=== PATIENT | male | born 1975 | race Hispanic/Latino ===

== ENCOUNTER → 2016-06-15 | Outpatient (REF) | payer OTHER ==
[~2016-06-15] MED LIST: AUGM875T27 PO; BUPR15TAXL PO; CELE20TA OR; CIPR PO; CIPR500T89 PO; DEPA1TAB3 PO; IBUP600T26 PO; LAMI25TA OR; NAPR500T2 PO; PERCOCET PO; PROZ10CA7 PO; SERO1TAB PO; SYNT25TA PO; TRAZ100T OR; TRAZ50TA2 PO; TRAZ50TA4 PO; TYLE325T5 PO; WELL100T PO; XANA2TAB2 PO
== END ==
LOC: M SFHCPLAZ 09:53
PROVIDERS: ATTEND Family Medicine
DX: E03.9 Hypothyroidism, unspecified (principal); R73.9 Hyperglycemia, unspecified

== ENCOUNTER → 2016-06-15 | Outpatient (CLI) | payer OTHER ==
[2016-06-15 08:55] LABS: ALBUMIN 3.6 GM/DL (3.2-5.2); ALBUMIN/GLOBULIN RATIO 1.13 (1.00-1.93); ALKALINE PHOSPHATASE 130 U/L (45-117); ALT/SGPT 30 U/L (12-78); ANION GAP 11 MEQ/L (8-16); AST/SGOT 22 U/L (15-37); BILIRUBIN,TOTAL 0.2 MG/DL (0.2-1.0); BLOOD UREA NITROGEN 11 MG/DL (7-18); CALCIUM LEVEL 7.9 MG/DL (8.5-10.1); CARBON DIOXIDE LEVEL 27 MEQ/L (21-32); CHLORIDE LEVEL 106 MEQ/L (98-107); CHOLESTEROL LEVEL 157 MG/DL (<200); CREATININE FOR GFR 1.12 MG/DL (0.70-1.30); GLOMERULAR FILTRATION RATE > 60.0 (>60); GLUCOSE, FASTING 136 MG/DL (70-105); POTASSIUM SERUM 3.7 MEQ/L (3.5-5.1); SODIUM LEVEL 144 MEQ/L (136-145); TOTAL PROTEIN 6.8 GM/DL (6.4-8.2); TRIGLYCERIDES LEVEL 462 MG/DL (<150)
[2016-06-15 09:55] LABS: FREE T4 0.96 NG/DL (0.76-1.46)
== END ==
LOC: M LAB 08:07
PROVIDERS: ATTEND Family Medicine
DX: E66.3 Overweight (principal)

== ENCOUNTER 2016-07-22 00:53 | Emergency (ER) | payer OTHER ==
[~2016-07-22] VITALS: Ht 165.1 cm; Wt 77.6 kg
[2016-07-22 02:13] VITALS: BP 131/88
== END 2016-07-22 05:44 | disposition left against medical advice (07) ==
LOC: M ED 01:53
DX: M25.521 Pain in right elbow (principal); Z53.21 Procedure and treatment not carried out due to patient leaving prior to being seen by health care provider

== ENCOUNTER 2017-05-04 09:32 | Emergency (ER) | payer OTHER ==
[2017-05-04] MEDS: KETOROLAC 60 MG/2 ML VIAL (J1885) IM (10:15)
[2017-05-04 11:18] LABS: ANION GAP 7 MEQ/L (8-16); BLOOD UREA NITROGEN 12 MG/DL (7-18); CALCIUM LEVEL 8.9 MG/DL (8.5-10.1); CARBON DIOXIDE LEVEL 23 MEQ/L (21-32); CHLORIDE LEVEL 110 MEQ/L (98-107); CREATININE FOR GFR 1.28 MG/DL (0.70-1.30); FREE T4 1.11 NG/DL (0.76-1.46); GLOMERULAR FILTRATION RATE > 60.0 (>60); GLUCOSE, FASTING 110 MG/DL (70-100); MAGNESIUM LEVEL 2.6 MG/DL (1.8-2.4); POTASSIUM SERUM 3.8 MEQ/L (3.5-5.1); SODIUM LEVEL 140 MEQ/L (136-145)
== END 2017-05-04 13:19 | disposition home or self-care (01) ==
LOC: M ED 09:32
DX: S59.801A Other specified injuries of right elbow, initial encounter (principal); G56.91 Unspecified mononeuropathy of right upper limb; F17.200 Nicotine dependence, unspecified, uncomplicated; W19.XXXA Unspecified fall, initial encounter; Y92.099 Unspecified place in other non-institutional residence as the place of occurrence of the external cause; Y93.89 Activity, other specified
CPT/HCPCS: J1885

== ENCOUNTER 2019-05-06 09:13 | Emergency (ER) | payer OTHER ==
[~2019-05-06] VITALS: Ht 162.6 cm; Wt 81.9 kg
[~2019-05-06 09:13] MED LIST changes: -BUPR15TAXL PO; +BUPR1TAB43 PO; +IBUP-1022 PO; -IBUP600T26 PO; +NAPR-885 PO; -NAPR500T2 PO; +OXYC1TAB23 PO; -PERCOCET PO; +TRAZ-252 PO; -TRAZ50TA4 PO; +TYLE500T78 PO
[2019-05-06] MEDS ORDERED: HYDR-3713 (09:22)
--- NOTE | 2019-05-06 11:50 | REP ---
LEFT ELBOW, FOUR VIEWS: There is no evidence of an acute fracture, dislocation or intrinsic bone disease. IMPRESSION: No fracture or dislocation. Electronically Signed by Billy Nava MD 05/08/2019 11:41 A
[2019-05-06 12:36] VITALS: BP 144/75
== END 2019-05-06 12:38 | disposition home or self-care (01) ==
LOC: M ED 09:13
DX: M77.12 Lateral epicondylitis, left elbow (principal); E03.9 Hypothyroidism, unspecified; J30.2 Other seasonal allergic rhinitis; F17.210 Nicotine dependence, cigarettes, uncomplicated

== ENCOUNTER → 2019-11-25 | Emergency (ER) | payer OTHER ==
[~2019-11-25] MED LIST changes: +HYDR-3713; +MORPHINE 2 MG/ML 1ML VIAL (J2270) As Ordered ONE; +MORPHINE 2 MG/ML 1ML VIAL (J2270) ONE
== END | disposition other institution (70) ==
LOC: M ED 22:04
DX: H05.231 Hemorrhage of right orbit (principal); S02.2XXA Fracture of nasal bones, initial encounter for closed fracture; S02.831A Fracture of medial orbital wall, right side, initial encounter for closed fracture; Y04.0XXA Assault by unarmed brawl or fight, initial encounter; Y92.099 Unspecified place in other non-institutional residence as the place of occurrence of the external cause; Y93.9 Activity, unspecified; Y99.9 Unspecified external cause status
CPT/HCPCS: 70450; 70486; 72125; 96374; 99284; J2270

== ENCOUNTER 2020-01-10 08:40 | Emergency (ER) | payer OTHER ==
[~2020-01-10] VITALS: Ht 165.1 cm; Wt 81.3 kg
[~2020-01-10 08:40] MED LIST changes: -MORPHINE 2 MG/ML 1ML VIAL (J2270) As Ordered ONE; -MORPHINE 2 MG/ML 1ML VIAL (J2270) ONE
[2020-01-10 08:41] VITALS: BP 131/78
== END 2020-01-10 09:32 | disposition home or self-care (01) ==
LOC: M ED 08:40
DX: R05 Cough (principal); R09.89 Other specified symptoms and signs involving the circulatory and respiratory systems; R51.9 Headache, unspecified; F17.210 Nicotine dependence, cigarettes, uncomplicated
CPT/HCPCS: 99282; U0003

== ENCOUNTER 2020-08-05 07:40 | Emergency (ER) | payer OTHER ==
[~2020-08-05] VITALS: Ht 165.1 cm; Wt 80.4 kg
[2020-08-05] MEDS ORDERED: NS 1,000 ML IV ONE (08:25)
[2020-08-05] MEDS ORDERED: ONDANSETRON 4MG/2ML VIAL IV ONE (08:25)
[2020-08-05 08:31] LABS: BASO # 0.1 10^3/uL (0.0-0.2); BASO % 0.7 % (0.0-1.0); EOS # 0.1 10^3/uL (0.0-0.5); EOS % 1.5 % (0.0-3.0); HEMATOCRIT 39.8 % (42.0-52.0); LYMPH # 2.8 10^3/uL (1.5-5.0); LYMPH % 31.7 % (24.0-44.0); MEAN CORPUSCULAR HGB CONC 32.7 g/dl (32.0-36.5); MEAN CORPUSCULAR VOLUME 88.8 fl (80.0-96.0); MONO # 0.6 10^3/uL (0.0-0.8); MONO % 7.2 % (2.0-8.0); NEUTROPHILS # 5.3 10^3/uL (1.5-8.5); NEUTROPHILS % 58.7 % (36.0-66.0); PLATELET COUNT, AUTOMATED 230 10^3/uL (150-450); RED BLOOD COUNT 4.48 10^6/uL (4.30-6.10); WHITE BLOOD COUNT 8.9 10^3/uL (4.0-10.0)
[2020-08-05] MEDS ORDERED: ISOVUE-370 76% 100ML VIAL As Ordered ONE (08:48)
[2020-08-05 09:03] LABS: ALT/SGPT 34 U/L (12-78); BILIRUBIN,DIRECT < 0.1 MG/DL (0.0-0.2); BILIRUBIN,TOTAL 0.2 MG/DL (0.2-1.0); BLOOD UREA NITROGEN 17 MG/DL (7-18); CALCIUM LEVEL 9.3 MG/DL (8.5-10.1); CARBON DIOXIDE LEVEL 25 MEQ/L (21-32); CHLORIDE LEVEL 109 MEQ/L (98-107); CK-MB VALUE MASS < 1.0 NG/ML (<3.6); CPK CREATINE PHOSPHOKINASE 439 U/L (39-308); CREATININE FOR GFR 1.13 MG/DL (0.70-1.30); ETHYL ALCOHOL (ETHANOL) < 0.003 % (0.000-0.010); GLOMERULAR FILTRATION RATE > 60.0 (>60); GLUCOSE, FASTING 133 MG/DL (70-100); LIPASE 115 U/L (73-393); MB/CK RELATIVE INDEX 0.23 (< OR =4); POTASSIUM SERUM 3.6 MEQ/L (3.5-5.1); SODIUM LEVEL 141 MEQ/L (136-145); TOTAL PROTEIN 7.9 GM/DL (6.4-8.2); TROPONIN I < 0.02 NG/ML (< 0.10)
--- NOTE | 2020-08-05 09:07 | REP ---
INDICATION: abdominal pain. COMPARISON: Comparison chest x-ray March 07, 2015. TECHNIQUE: Portable upright AP chest radiograph. FINDINGS: The lungs are well inflated and free of infiltrate. Pleural angles are sharp. Heart size is normal. Pulmonary vasculature is not increased. EKG monitoring electrodes are seen. There are surgical clips in right upper quadrant post cholecystectomy. IMPRESSION: No active disease. <Electronically signed by Niko Castellon > 08/05/20 0903
--- NOTE | 2020-08-05 09:29 | REP ---
INDICATION: abdominal pain. COMPARISON: Comparison CT abdomen is from September 03, 2012.. TECHNIQUE: Helical scanning was acquired and 4 mm axial images are re-formatted. Coronal and sagittal MPR images were generated and reviewed. The contrast enhancement dose is 100 mL of intravenous Isovue 370. FINDINGS: Preliminary digital criminal research specialist radiograph demonstrates an unremarkable bowel gas pattern. The lung bases are clear on axial CT images. The gallbladder surgically absent. No focal liver lesion is seen. The liver is not enlarged. There are 2 stable accessory splenules in the left upper quadrant unchanged. Normal adrenal glands are seen bilaterally. No abnormality is observed in the pancreas. The kidneys enhance symmetrically and are morphologically intact. No retroperitoneal mass or adenopathy is observed. Small and large intestinal bowel loops are unremarkable in the abdomen and pelvis. A normal appendix is seen in the right lower quadrant. Urinary bladder, seminal vesicles, and prostate are unremarkable. No pelvic mass or adenopathy is seen. No abdominal wall defect is observed. Bone window settings show no bony destructive lesion. IMPRESSION: Post cholecystectomy. No acute abdominal or pelvic abnormality. <Electronically signed by Niko Castellon > 08/05/20 0988
[2020-08-05 12:15] VITALS: BP 129/77
[2020-08-05] MEDS ORDERED: ONDA4TAB6 PO (12:16)
[2020-08-05] MEDS ORDERED: SUCR1TA PO (12:16)
--- NOTE | 2020-08-05 22:58 | ECGEPIP ---
[facility] - ED Test Date: 2020-08-05 Pat Name: LIZ GARCIA Department: Room: - Gender: Male Concept Artist: GER : 1975 Requested By: CROW Farmer Order Number: [id number] Reading MD: Hernan Tamayo Measurements Intervals [place] Rate: 88 P: 20 MD: 116 QRS: 56 QRSD: 90 T: 51 QT: 368 QTc: 445 Interpretive Statements Normal sinus rhythm BASELINE ARTIFACT AFFECTS INTERPRETATION Electronically Signed on 08-05-2020 22:58:40 EDT by Hernan Tamayo
== END 2020-08-05 12:26 | disposition home or self-care (01) ==
LOC: M ED 07:40
DX: K30 Functional dyspepsia (principal); F17.200 Nicotine dependence, unspecified, uncomplicated
CPT/HCPCS: 36415; 71045; 74177; 80048; 80076; 82077; 82550; 82553; 83605; 83690; 85025; 93005; 93041; 96361; 96374; 99285; J2405; Q9967

== ENCOUNTER → 2020-11-20 | Outpatient (CLI) | payer OTHER ==
[~2020-11-20] MED LIST changes: +ONDA4TAB6 PO; +SUCR1TA PO
--- NOTE | 2020-11-20 11:01 | REP ---
INDICATION: R HAND INJURY, R/O FRACTURE. COMPARISON: None. TECHNIQUE: Four views FINDINGS: Chip fracture base proximal phalanx index finger medial aspect. Soft tissue swelling index finger paired soft tissue swelling thenar eminence. No other fractures. IMPRESSION: Chip fracture base proximal phalanx 2nd finger. <Electronically signed by Brian Quintero > 11/20/20 1058
== END ==
LOC: M RAD 10:38
PROVIDERS: ATTEND Physician Assistant Medical
DX: S62.610A Displaced fracture of proximal phalanx of right index finger, initial encounter for closed fracture (principal); X58.XXXA Exposure to other specified factors, initial encounter; Y92.89 Other specified places as the place of occurrence of the external cause; Y93.89 Activity, other specified; Y99.8 Other external cause status

== ENCOUNTER 2020-12-29 15:09 | Emergency (ER) | payer OTHER ==
[~2020-12-29] VITALS: Ht 165.1 cm; Wt 78.2 kg
[2020-12-29 15:09] VITALS: BP 153/87
== END 2020-12-29 17:15 | disposition left against medical advice (07) ==
LOC: M ED 15:09
DX: Z53.21 Procedure and treatment not carried out due to patient leaving prior to being seen by health care provider (principal)

== ENCOUNTER 2021-01-31 02:17 | Emergency (ER) | payer OTHER ==
[~2021-01-31] VITALS: Ht 165.1 cm; Wt 80.0 kg
--- OUTSIDE RECORDS SUMMARY | 2021-01-31 02:24 | CCD ---
Author Organization Unknown Address [address] [place] [id number] Phone [phone] Care Team Providers Care Union Laborer Name Role Phone Rico Packer Unavailable Unavailable Allergies Code Code System Name Reaction Severity Status Onset NKDA Medications Name Status Start Date Stop Date amoxicillin 875 mg-potassium clavulanate 125 mg tablet TAKE ONE TABLET BY MOUTH TWICE DAILY FOR SEVEN DAYS Completed 12/01/2020 hydrocodone 5 mg-acetaminophen 325 mg ta blet TAKE ONE TABLET BY MOUTH EVERY SIX HOURS NEEDED FOR PAIN MAX DAILY DOSE FOUR TABLETS Completed 12/01/2020 ibuprofen 400 mg tablet TAKE ONE TABLET BY MOUTH EVERY SIX HOURS NEEDED FOR PAIN FOR UP TO 10 DAYS Completed 12/01/2020 lamotrigine 25 mg tablet TAKE ONE TABLET BY MOUTH ONCE DAILY Active Not available naproxen 500 mg tablet TAKE ONE TABLET BY MOUTH EVERY 12 HOURS FOR 10 DAYS Completed 12/01/2020 ondansetron 4 mg disintegrating tablet TAKE ONE TABLET BY MOUTH EVERY 6-8 HOURS NEEDED FOR NAUSEA AND VOMITING Completed 12/01/2020 sucralfate 1 gram tablet TAKE ONE TABLET BY MOUTH FOUR TIMES DAILY Completed 12/01/2020 Tylenol 325 mg capsule Take by oral route. 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 11/08/2018 History Arthropathy Active 11/08/[address] Concept Unknown 11/08/2018 History Disorder of Musculoskeletal System Unknown 03/15/2019 History Lateral Epicondylitis Active 07/07/2020 Procedures Date Name Performed by 12/01/2020 XR, Hand [facility] [address], [place] [id number] (Work Place) Notes: gallbladder removed Results Lab Results Date Name Specimen Result Interpretation Description Value Range Status Address 08/05/2020 Lactic Acid, Serum or Plasma Normal Lactic Acid Sepsis Protocol 1.6 mmol/L 0.4-2.0 mmol/L [facility]: [address] [place] [address] 08/05/2020 CBC W/ Auto Diff Normal White Blood Count 8.9 10 4.0-10.0 10 [facility]: [address] [place] [address] Normal Red Blood Count 4.48 10 4.30-6.10 10 [facility]: [address] [place] [address] Low Hemoglobin 13.0 g/dL 13.5-17.5 g/dL [facility]: [address] [place] [address] Low Hematocrit 39.8 % 42.0-52.0 % [facility]: [address] [place] [address] Normal Mean Corpuscular Volume 88.8 fL 80.0 -96.0 fL [facility]: [address] [place] [address] Normal Mean Corpuscular Hemoglobin 29.0 pg 27.0-33.0 pg [facility]: [address] [place] [address] Normal Mean Corpuscular HGB Conc 32.7 g/dL 32.0-36.5 g/dL [facility]: [address] [place] [address] Normal Red Cell Distribution Width 13.3 % 1 1.5-14.5 % [facility]: [address] [place] [address] Normal Platelet Count, Automated 230 10 150 -450 10 [facility]: [address] [place] [address] Normal Neutrophils % 58.7 % 36.0-66.0 % [facility]: [address] [place] [address] Normal Lymph % 31.7 % 24.0-44.0 % [facility]: [address] [place] [address] Normal [place] % 7.2 % 2.0-8.0 % [facility]: [address] [place] [address] Normal Eos % 1.5 % 0.0-3.0 % [facility]: [address] [place] [address] Normal Baso % 0.7 % 0.0-1.0 % [facility]: [address] [facility] Normal Immature Granulocyte % 0.2 % 0-3.0 % [facility]: [address] [facility] Normal Nucleated Red Blood Cell % 0.0 % 0- 0 % [facility]: [address] [facility] Normal Neutrophils # 5.3 10 1.5-8.5 10 [facility] [address] [facility] Normal Lymph # 2.8 10 1.5-5.0 10 [facility]: [address] [facility] Normal Morrill # 0.6 10 0.0-0.8 10 Health system: [address] [facility] Normal Eos # 0.1 10 0.0-0.5 10 [facility]: [address] [facility] Normal Baso # 0.1 10 0.0-0.2 10 Health system: [address] [facility] 08/05/2020 Cardiovascular Assessment Panel, Serum High CPK Creatine Phosphokinase 439 U/L 39-308 U/L [facility]: [address] [place] [address] Normal CK-mb Value Mass < 1.0 NG/mL <3.6 NG /mL [facility]: [address] [place] [address] Normal mb/CK Relative Index 0.23 < or =4 [facility]: 0 [facility] Normal Troponin I < 0.02 NG/mL < 0.10 NG/mL [facility]: 0 [facility] 08/05/2020 Hepatic Function Panel, Serum Normal AST/SG OT 25 U/L 7-37 U/L [facility]: 0 [facility] Normal ALT/SGPT 34 U/L 12-78 U/L [facility]: 0 [facility] High Alkaline Phosphatase 130 U/L 45-117 U/L [facility]: 0 [facility] Normal Bilirubin,total 0.2 mg/dL 0.2-1.0 mg /dL [facility]: [address] [facility] Normal Bilirubin,direct < 0.1 mg/dL 0.0-0.2 mg/dL [facility]: [address] [facility] Normal Total Protein 7.9 gm/dL 6.4-8.2 gm/d L [facility]: [address] [facility] Normal Albumin 4.0 gm/dL 3.2-5.2 gm/dL Guerline l [facility]: [address] [facility] Normal Albumin/globulin Ratio 1.0 [facility]: 0 [facility] 08/05/2020 BMP, Serum or Plasma High Glucose, Fastin g 133 mg/dL 70-100 mg/dL [facility]: [address] [facility] Normal Blood Urea Nitrogen 17 mg/dL 7-18 mg /dL [facility]: 0 [facility] Normal Creatinine for GFR 1.13 mg/dL 0.70-1 .30 mg/dL [facility]: 0 [facility] Normal Glomerular Filtration Rate > 60.0 >6 0 [facility]: 0 [facility] Normal Sodium Level 141 mEq/L 136-145 mEq/L [facility]: 0 [facility] Normal Potassium Serum 3.6 mEq/L 3.5-5.1 mE q/L [facility]: [address] [facility] High Chloride Level 109 mEq/L 98-107 mEq/ L [facility]: 0 [facility] Normal Carbon Dioxide Level 25 mEq/L 21-32 mEq/L [facility]: 0 [facility] Low Anion Gap 7 mEq/L 8-16 mEq/L [facility]: 0 [facility] Normal Calcium Level 9.3 mg/dL 8.5-10.1 mg/ dL [facility]: 0 [facility] 08/05/2020 Lipase, Serum or Plasma Normal Lipase 115 U/L 73-393 U/L Final [facility]: [address] [facility] 08/05/2020 Ethanol, Blood Normal Ethyl Alcohol (Ethano l) < 0.003 % 0.000- 0.010 % Final [facility]: [address] [facility] Past Encounters 01/05/2021 Depressive Disorder Kayla Duque, [facility]: [address] [facility], [facility] [address], [place] [address], Ph. 12/01/2020 Fracture of Proximal Phalanx of Finger; Impulse Control Disorder Rico Packer, [facility]: [address] [facility], [facility] [address], [place] [address], Ph. Social History None recorded. Vaccine List None recorded. Plan of Care Reminders Provider Appointments None recorded. Lab None recorded. Referral None recorded. Procedures None recorded. Surgeries None recorded. Imaging None recorded. Vitals 12/01/2020 01:40PM HOSPITAL DISCHARGE Height Weight BMI Blood Pressure 65 in 175 lbs 8 oz 29.2 kg/m2 129/89 mm[Hg] 03/15/2019 Height Weight BMI Blood Pressure 65 in 161 lbs 12.8 oz 27.02 kg/m2 128/88 mm[H g] 11/08/2018 Height Weight BMI Blood Pressure 65 in 174 lbs 29.06 kg/m2 142/86 mm[Hg]
--- OUTSIDE RECORDS SUMMARY | 2021-01-31 02:24 | CCD ---
Author Organization Unknown Address [address] [place] [address] Phone [phone] Care Team Providers Care Auto Engine Mechanic Name Role Phone Rico Packer Unavailable Unavailable [...] Unknown 03/15/2019 History Lateral Epicondylitis Active 07/07/2020 Dysthymia Active 01/27/2021 Procedures Date Name Performed by 12/01/2020 XR, Hand [facility] [address] [place], [place] [id number] (Work Place) Notes: gallbladder removed Results Lab Results Date Name Specimen Result Interpretation Description Value Range Status Address 08/05/2020 Lactic Acid, Serum or Plasma Normal Lactic Acid Sepsis Protocol 1.6 mmol/L 0.4-2.0 mmol/L [facility]: [address] [place] [address] 08/05/2020 CBC W/ Auto Diff Normal White Blood Count 8.9 10 4.0-10.0 10 [facility]: [address] [place] [address] Normal Red Blood Count 4.48 10 4.30-6.10 10 [facility]: [address] [place] [address] Low Hemoglobin 13.0 g/dL 13.5-17.5 g/dL [facility]: [address] [place] [address] Low Hematocrit 39.8 % 42.0-52.0 % [facility]: [address] [place] [address] Normal Mean Corpuscular Volume 88.8 fL 80.0 -96.0 fL [facility]: [address] [place] [address] Normal Mean Corpuscular Hemoglobin 29.0 pg 27.0-33.0 pg [facility]: [address] [place] [address] Normal Mean Corpuscular HGB Conc 32.7 g/dL 32.0-36.5 g/dL [facility]: [address] [place] [address] Normal Red Cell Distribution Width 13.3 % 1 1.5-14.5 % [facility]: [address] [place] [address] Normal Platelet Count, Automated 230 10 150 -450 10 [facility]: [address] [place] [address] Normal Neutrophils % 58.7 % 36.0-66.0 % [facility]: [address] [place] [address] Normal Lymph % 31.7 % 24.0-44.0 % [facility]: [address] [place] [address] Normal [place] % 7.2 % 2.0-8.0 % [facility]: [address] [place] [address] Normal Eos % 1.5 % 0.0-3.0 % [facility]: [address] [place] [address] Normal Baso % 0.7 % 0.0-1.0 % [facility]: [address] [facility] Normal Immature Granulocyte % 0.2 % 0-3.0 % [facility]: [address] [facility] Normal Nucleated Red Blood Cell % 0.0 % 0- 0 % [facility]: [address] [facility] Normal Neutrophils # 5.3 10 1.5-8.5 10 [facility]: [address] [facility] Normal Lymph # 2.8 10 1.5-5.0 10 [facility]: [address] [facility] Normal [place] # 0.6 10 0.0-0.8 10 [facility]: [address] [facility] Normal Eos # 0.1 10 0.0-0.5 10 [facility]: [address] [facility] Normal Baso # 0.1 10 0.0-0.2 10 [facility]: [address] [facility] 08/05/2020 Cardiovascular Assessment Panel, Serum High CPK Creatine Phosphokinase 439 U/L 39-308 U/L [facility]: 0 [facility] Normal CK-mb Value Mass < 1.0 NG/mL <3.6 NG /mL [facility]: [address] [place] [address] Normal mb/CK Relative Index 0.23 < or =4 [facility]: [address] [place] [address] Normal Troponin I < 0.02 NG/mL < 0.10 NG/mL [facility]: 0 [facility] 08/05/2020 Hepatic Function Panel, Serum Normal AST/SG OT 25 U/L 7-37 U/L [facility]: 0 [facility] Normal ALT/SGPT 34 U/L 12-78 U/L [facility]: 0 [facility] High Alkaline Phosphatase 130 U/L 45-117 U/L [facility]: 0 [facility] Normal Bilirubin,total 0.2 mg/dL 0.2-1.0 mg /dL [facility]: [address] [facility] Normal Bilirubin,direct < 0.1 mg/dL 0.0-0.2 mg/dL [facility]: [address] [facility] Normal Total Protein 7.9 gm/dL 6.4-8.2 gm/d L [facility]: [address] [facility] Normal Albumin 4.0 gm/dL 3.2-5.2 gm/dL Guerline l [facility]: [address] [facility] Normal Albumin/globulin Ratio 1.0 [facility]: 0 [facility] 08/05/2020 BMP, Serum or Plasma High Glucose, Fastin g 133 mg/dL 70-100 mg/dL [facility]: [address] [facility] Normal Blood Urea Nitrogen 17 mg/dL 7-18 mg /dL [facility]: 0 [facility] Normal Creatinine for GFR 1.13 mg/dL 0.70-1 .30 mg/dL [facility]: 0 [facility] Normal Glomerular Filtration Rate > 60.0 >6 0 [facility]: [address] [facility] Normal Sodium Level 141 mEq/L 136-145 mEq/L [facility]: 0 [facility] Normal Potassium Serum 3.6 mEq/L 3.5-5.1 mE q/L [facility]: [address] [facility] High Chloride Level 109 mEq/L 98-107 mEq/ L [facility]: [address] [facility] Normal Carbon Dioxide Level 25 mEq/L 21-32 mEq/L [facility]: 0 [facility] Low Anion Gap 7 mEq/L 8-16 mEq/L [facility]: [address] [facility] Normal Calcium Level 9.3 mg/dL 8.5-10.1 mg/ dL [facility]: 0 [facility] 08/05/2020 Lipase, Serum or Plasma Normal Lipase 115 U/L 73-393 U/L Final [facility]: [address] [facility] 08/05/2020 Ethanol, Blood Normal Ethyl Alcohol (Ethano l) < 0.003 % 0.000- 0.010 % [facility]: [address] [facility] Past Encounters 01/27/2021 Dysthymia Kayla Duque, [facility]: [address] [facility] [address], [place] [address], Ph. 01/05/2021 Depressive Disorder Kayla Duque [facility]: [address] [facility], [facility] [address], [place] [address], Ph. 12/01/2020 Fracture of Proximal Phalanx of Finger; Impulse Control Disorder Rico Packer, [facility]: [address] [facility], [facility] [address], [place] [address], Ph. Social History None recorded. Vaccine List [...]
--- OUTSIDE RECORDS SUMMARY | 2021-01-31 02:24 | CCD ---
Author Organization Unknown Address [address] [place] [id number] Phone [phone] Care Team Providers Care General Assembler Name Role Phone Rico Packer Unavailable Unavailable [...] Date Name Performed by 12/01/2020 XR, [facility] [address] [place], [place] [id number] (Work Place) Notes: gallbladder removed Results Lab Results Date Name Specimen Result Interpretation Description Value Range Status Address 08/05/2020 Lactic Acid, Serum or Plasma Normal Lactic Acid Sepsis Protocol 1.6 mmol/L 0.4-2.0 mmol/L [facility]: [address] [place] [address] 08/05/2020 CBC W/ Auto Diff Normal White Blood Count 8.9 10 4.0-10.0 10 [facility]: [address] [place] [address] Normal Red Blood Count 4.48 10 4.30-6.10 10 [facility]: [address] [place] [address] Low Hemoglobin 13.0 g/dL 13.5-17.5 g/dL [facility]: [address] [place] [address] Low Hematocrit 39.8 % 42.0-52.0 % [facility]: [address] [place] [address] Normal Mean Corpuscular Volume 88.8 fL 80.0 -96.0 fL [facility]: [address] [place] [address] Normal Mean Corpuscular Hemoglobin 29.0 pg 27.0-33.0 pg [facility]: [address] [place] [address] Normal Mean Corpuscular HGB Conc 32.7 g/dL 32.0-36.5 g/dL [facility]: [address] [place] [address] Normal Red Cell Distribution Width 13.3 % 1 1.5-14.5 % [facility]: [address] [place] [address] Normal Platelet Count, Automated 230 10 150 -450 10 [facility]: [address] [place] [address] Normal Neutrophils % 58.7 % 36.0-66.0 % [facility]: [address] [place] [address] Normal Lymph % 31.7 % 24.0-44.0 % [facility]: [address] [place] [address] Normal [place] % 7.2 % 2.0-8.0 % [facility]: [address] [place] [address] Normal Eos % 1.5 % 0.0-3.0 % [facility]: [address] [place] [address] Normal Baso % 0.7 % 0.0-1.0 % [facility]: [address] [facility] Normal Immature Granulocyte % 0.2 % 0-3.0 % [facility]: [address] [facility] Normal Nucleated Red Blood Cell % 0.0 % 0- 0 % [facility]: [address] [facility] Normal Neutrophils # 5.3 10 1.5-8.5 10 [facility] [address] [facility] Normal Lymph # 2.8 10 1.5-5.0 10 [facility]: [address] [facility] Normal [place] # 0.6 10 0.0-0.8 10 [facility]: [address] [facility] Normal Eos # 0.1 10 0.0-0.5 10 [facility]: [address] [facility] Normal Baso # 0.1 10 0.0-0.2 10 [facility]: [address] [facility] 08/05/2020 Cardiovascular Assessment Panel, Serum High CPK Creatine Phosphokinase 439 U/L 39-308 U/L [facility]: [address] [place] [address] Normal CK-mb Value Mass < 1.0 NG/mL <3.6 NG /mL [facility]: [address] [place] [address] Normal mb/CK Relative Index 0.23 < or =4 [facility]: 0 [facility] Normal Troponin I < 0.02 NG/mL < 0.10 NG/mL [facility]: 0 [facility] 08/05/2020 Hepatic Function Panel, Serum Normal AST/SG OT 25 U/L 7-37 U/L [facility]: 0 [facility] Normal ALT/SGPT 34 U/L 12-78 U/L [facility]: 0 [facility] High Alkaline Phosphatase 130 U/L 45-117 U/L [facility]: 0 [facility] Normal Bilirubin,total 0.2 mg/dL 0.2-1.0 mg /dL [facility]: [address] [facility] Normal Bilirubin,direct < 0.1 mg/dL 0.0-0.2 mg/dL [facility]: [address] [facility] Normal Total Protein 7.9 gm/dL 6.4-8.2 gm/d L [facility]: [address] [facility] Normal Albumin 4.0 gm/dL 3.2-5.2 gm/dL Guerline l [facility]: [address] [facility] Normal Albumin/globulin Ratio 1.0 [facility]: 0 [facility] 08/05/2020 BMP, Serum or Plasma High Glucose, Fastin g 133 mg/dL 70-100 mg/dL [facility]: 83 0 [facility] Normal Blood Urea Nitrogen 17 mg/dL 7-18 mg /dL [facility]: 0 [facility] Normal Creatinine for GFR 1.13 mg/dL 0.70-1 .30 mg/dL [facility]: 0 [facility] Normal Glomerular Filtration Rate > 60.0 >6 0 [facility]: 0 [facility] Normal Sodium Level 141 mEq/L 136-145 mEq/L [facility]: 0 [facility] Normal Potassium Serum 3.6 mEq/L 3.5-5.1 mE q/L [facility]: [address] [facility] High Chloride Level 109 mEq/L 98-107 mEq/ L [facility]: 0 [facility] Normal Carbon Dioxide Level 25 mEq/L 21-32 mEq/L [facility]: 0 [facility] Low Anion Gap 7 mEq/L 8-16 mEq/L [facility]: 0 [facility] Normal Calcium Level 9.3 mg/dL 8.5-10.1 mg/ dL [facility]: 0 [facility] 08/05/2020 Lipase, Serum or Plasma Normal Lipase 115 U/L 73-393 U/L Final [facility]: [address] [facility] 08/05/2020 Ethanol, Blood Normal Ethyl Alcohol (Ethano l) < 0.003 % 0.000- 0.010 % Final [facility]: [address] 0 [facility] Past Encounters 12/01/2020 Fracture of Proximal Phalanx of Finger; Impulse Control Disorder Rico Packer, RPA-C: [address] [facility], [facility] [address], [place] [address], Ph. Social History None recorded. Vaccine List [...]
--- OUTSIDE RECORDS SUMMARY | 2021-01-31 02:25 | CCD ---
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 J[facility] ([facility]) troponin I < 0.02 < 0.10 Troponin I J[facility] ([facility]) CPK creatine phosphokinase 439 U/L 39-308 Above high nor mal CPK Creatine Phosphokinase J[facility] ([facility]) CK-mb value mass < 1.0 <3.6 CK-mb Value Mass AT [facility] ([facility]) ID Date Data Source [id number] 08/05/2020 08:08:00 AM EDT J[facility] ([facility]) Name Value Range Interpretation Code Description Data Aide rce(s) Supporting Document(s) white blood count 8.9 10 4.0-10.0 White Blood Count J[facility] ([facility]) red blood count 4.48 10 4.30-6.10 Red Blood Count ATHE NA ([facility]) hemoglobin 13.0 g/dL 13.5-17.5 Below low normal Hemoglobin JH ( [facility]) hematocrit 39.8 % 42.0-52.0 Below low normal Hematocrit J[facility] ( [facility]) mean corpuscular hemoglobin 29.0 pg 27.0-33.0 Mean Cor puscular Hemoglobin JH ([facility]) mean corpuscular HGB conc 32.7 g/dL 32.0-36.5 Mean Corpu scular HGB Conc JH ([facility]) mean corpuscular volume 88.8 fL 80.0-96.0 Mean Corpusc ular Volume JH ([facility]) red cell distribution width 13.3 % 11.5-14.5 Red Cell Distribution Width JH ([facility]) lymph % 31.7 % 24.0-44.0 Lymph % J[facility] ([facility]) neutrophils % 58.7 % 36.0-66.0 Neutrophils % [place] ( [facility]) platelet count, automated 230 10 150-450 Platelet C ount, Automated JH ([facility]) mono % 7.2 % 2.0-8.0 [place] % J[facility] ([facility]) eos % 1.5 % 0.0-3.0 Eos % J[facility] ([facility]) baso % 0.7 % 0.0-1.0 Baso % J[facility] ([facility]) nucleated red blood cell % 0.0 % 0-0 Nucleated Red Blood Cell % J[facility] ([facility]) neutrophils # 5.3 10 1.5-8.5 Neutrophils # [place] ( [facility]) immature granulocyte % 0.2 % 0-3.0 Immature Gran ulocyte % J[facility] ([facility]) baso # 0.1 10 0.0-0.2 Baso # [facility] ([facility]) eos # 0.1 10 0.0-0.5 Eos # [facility] ([facility]) mono # 0.6 10 0.0-0.8 [place] # [facility] ([facility]) lymph # 2.8 10 1.5-5.0 Lymph # [facility] ([facility]) ID Date Data Source [id number] 08/05/2020 08:08:00 AM EDT [place] ([facility]) Name Value Range Interpretation Code Description Data Aide rce(s) Supporting Document(s) ethyl alcohol (ethanol) < 0.003 0.000-0.010 Ethyl Alcoh ol (Ethanol) [place] ([facility]) ID Date Data Source [id number] 08/05/2020 08:08:00 AM EDT [place] ([facility]) Name Value Range Interpretation Code Description Data Aide rce(s) Supporting Document(s) lipase 115 U/L 73-393 Lipase [place] ([facility]) ID Date Data Source [id number] 08/05/2020 08:08:00 AM EDT [place] ([facility]) Name Value Range Interpretation Code Description Data Aide rce(s) Supporting Document(s) glucose, fasting 133 mg/dL 70-100 Above high normal Glucose, Fas ting JH ([facility]) blood urea nitrogen 17 mg/dL 7-18 Blood Urea Nitro gen JH ([facility]) creatinine for GFR 1.13 mg/dL 0.70-1.30 Creatinine for GF R JH ([facility]) glomerular filtration rate > 60.0 >60 Glomerula r Filtration Rate J[facility] ([facility]) chloride level 109 mEq/L 98-107 Above high normal Chloride Level [place] ([facility]) potassium serum 3.6 mEq/L 3.5-5.1 Potassium Serum ATHE NA ([facility]) sodium level 141 mEq/L 136-145 Sodium Level J[facility] ([facility]) carbon dioxide level 25 mEq/L 21-32 Carbon Dioxide Level J[facility] ([facility]) calcium level 9.3 mg/dL 8.5-10.1 Calcium Level JH ( [facility]) anion gap 7 mEq/L 8-16 Below low normal Anion Gap J[facility] ( [facility]) ID Date Data Source [id number] 08/05/2020 08:08:00 AM EDT J[facility] ([facility]) Name Value Range Interpretation Code Description Data Aide rce(s) Supporting Document(s) AST/SGOT 25 U/L 7-37 AST/SGOT [facility] ([facility]) alkaline phosphatase 130 U/L 45-117 Above high normal Alkaline Phosphatase J[facility] ([facility]) ALT/SGPT 34 U/L 12-78 ALT/SGPT J[facility] ([facility]) bilirubin,direct < 0.1 0.0-0.2 Bilirubin,direct AT [facility]) albumin 4.0 gm/dL 3.2-5.2 Albumin J[facility] ([facility]) bilirubin,total 0.2 mg/dL 0.2-1.0 [facility] total protein 7.9 gm/dL 6.4-8.2 Total Protein JH ( [facility]) albumin/globulin ratio Albumin/globu kerri Ratio JH ([facility]) ID Date Data Source [id number] 08/05/2020 08:08:00 AM EDT JH ([facility]) Name Value Range Interpretation Code Description Data Aide rce(s) Supporting Document(s) CPK creatine phosphokinase 439 U/L 39-308 Above high nor mal CPK Creatine Phosphokinase J[facility] ([facility]) troponin I < 0.02 < 0.10 Troponin I J[facility] ([facility]) mb/CK relative index < or =4 mb/CK Relative Index J[facility] ([facility]) CK-mb value mass < 1.0 <3.6 CK-mb Value Mass AT [place] ([facility]) ID Date Data Source [id number] 08/05/2020 08:08:00 AM EDT J[facility] ([facility]) Name Value Range Interpretation Code Description Data Aide rce(s) Supporting Document(s) red blood count 4.48 10 4.30-6.10 Red Blood Count ATHE NA ([facility]) white blood count 8.9 10 4.0-10.0 White Blood Count J[facility] ([facility]) hemoglobin 13.0 g/dL 13.5-17.5 Below low normal Hemoglobin J[facility] ( [facility]) mean corpuscular volume 88.8 fL 80.0-96.0 Mean Corpusc ular Volume JH ([facility]) hematocrit 39.8 % 42.0-52.0 Below low normal Hematocrit J[facility] ( [facility]) red cell distribution width 13.3 % 11.5-14.5 Red Cell Distribution Width J[facility] ([facility]) mean corpuscular HGB conc 32.7 g/dL 32.0-36.5 Mean Corpu scular HGB Conc [place] ([facility]) mean corpuscular hemoglobin 29.0 pg 27.0-33.0 Mean Cor puscular Hemoglobin JH ([facility]) neutrophils % 58.7 % 36.0-66.0 Neutrophils % [place] ( [facility]) platelet count, automated 230 10 150-450 Platelet C ount, Automated JH ([facility]) mono % 7.2 % 2.0-8.0 [place] % [place] ([facility]) lymph % 31.7 % 24.0-44.0 Lymph % [facility] ([facility]) eos % 1.5 % 0.0-3.0 Eos % [facility] ([facility]) immature granulocyte % 0.2 % 0-3.0 Immature Gran ulocyte % [facility] ([facility]) baso % 0.7 % 0.0-1.0 Baso % [facility] ([facility]) neutrophils # 5.3 10 1.5-8.5 Neutrophils # [place] ( [facility]) nucleated red blood cell % 0.0 % 0-0 Nucleated Red Blood Cell % [facility] ([facility]) lymph # 2.8 10 1.5-5.0 Lymph # [facility] ([facility]) eos # 0.1 10 0.0-0.5 Eos # [facility] ([facility]) mono # 0.6 10 0.0-0.8 [place] # [facility] ([facility]) baso # 0.1 10 0.0-0.2 Baso # [facility] ([facility]) ID Date Data Source [id number] 01/10/2020 09:27:00 AM EDT [facility] Name Value Range Interpretation Code Description Data Aide rce(s) Supporting Document(s) SARS coronavirus 2 RNA [facility] This lab was ordered by [facility] and reported by [facility]. ID Date Data Source [id number] 12/04/2019 03:55:04 AM EDT [facility] Name Value Range Interpretation Code Description Data Aide rce(s) Supporting Document(s) ED Provider Note [facility] [id number] lbm [file] i2R07tkIEaLHhlAD3IIDN+Ilan+Qb0RUQOcIRItDJJnOgSzTWGJDtLqR7AgA5CVp8SnQ0OtYZ90tRsrjb QnATroDL5XOI2uRWBmLOMBDZ1IyMEnhD9evtS5JHKlIBPVUdDaM97xgTLpZYFhQIIaERArTn3CZXHrJ1 MdwwXcvJhlzpAuSLGcCNHPYO2FEQcdguTmiNRzkMlo PY01qFerRM0OQs7GHmAoUX4nko0WjNBsAt3WVGV7Qw3FFKFdAEGdCPUjWXB0XMXzVbLuEPpdTGToKJFo AAZ7YDXnDMApNT7WRhWpJMNbNPYtZGJqXDBbTJDhrd9OWPBmNXI8YWy8LGGyRCXmTCXuKCobCNJlZQIc WPT7YPAeUYQfRN7TAuFiSAIsBIPdTzhvETQfSIGrub 5NFMAdNYHyHwNbThKzEHEkRGAyYMzxAZFqSZK7VEK0XQEwFGXfCY0JBoPnSWQtWRTsIfYmGHQnOBKcso 3WXTZmRMMaTMvxRnNiJGRuIRQtLXdyMADgOBAbBFRtUHNfSSBqLE5RGwHmFEFnLTMgUBIiWSRfNFDpwl 9AYYYxUMUrOdIqASZkVMHiZYDaPGmcXHEsIEO8NYA1 ACDvCEBkDY2OExLqEQKzDWXsMXCpNWKdLWZdri2XEFFhSDJsGUC4VOCdCHAzANUuPFhxMTHxKFG1LkN4 KNPuWSMbZN5QHfMaBCJsRrQ8GQUhDTOgSYMswn3CLTBcAJEcHaI7HjWxROSyLPTiMSgjBVPrCHZ4XlBj KPGcOLSmVU6IRePxFVObDjV0JPNeDEArCEAwlr2UJY UoZNTlMQN8KJDwCCReCORiTAjyHOLmYUU6AGV5AYTiFHPuCV6OHzBuJVKlTdM6TsVkZFYhEZEazs2ATZ ZtBCGmTBc1UjSkAFZyAOWrKCryFOJwNQB3JvxrJMLeMVUjOX7AZlGvZVSaKgE1EHBwGXTrAAFqan1LLU NsBFBzBhK7OUFcFXMsWYCkUMtmPYEwNXF4Bio8MFGr XRWfSD9LFzFvOETzTxw7MPEcIYVmLAEfsb9KBBOjOJIgGZp1ZtOsSPEcZDUoGMkfLOUtKKI4WDN6TUXp SSZkQK3VIeLyMMYoUgh7NIBmWLOwAOMgpe6GLGRhKYJ6CGH4MrZxBPAdRPOrIIioRBRdUEElFzq9SQNw SBNiAL3VJgVeILDmUSEkYSPwQJEiSYTrrw2DRJFzVT T4DML7TLPiZIYhJJKbWPxmYNLpCNOnAwL3MIZrJADnMI4HXxEnZJWeTSZlATgsJQByPMOhdf8MVIEmMG F9VyUiEeVxTCYqIHLtPQdfONWhLCFdGhT1YGMeLTJcPD3IHoEpHWEhZFB3EdSeTOIyTZIaqo9MDNPvYH J2MPNnTMIhYIHtGTFmNEqcMRVyJIK0ITH1EYLvBXZa GE0CXuHrUOWoWJT2DENhLMYwQNBlfn8SNLWcMHD5MxXlRjWlGOBqEEQdZZmfKRQhJLO9IgB3PPUaOQTv EF9DFdBvGBYnOSWoQtAzTNKtUDXaat0DLMFfOFQ4HvZjXqSuKOChUIDbBDjkRUBdYHY4Dhw4LTQhMSOj UQ7YMqHeERSkLWS7MbcuVKCjLQWdjr2YTQWjHCB0Wi I2YBGjZNXgUJMpYRs5ohYxuCVaHDn0FJ0PB9YsuuNoDIZZXn6Dq613MHIxCPYuOz7HU2veWv7lGLGpCF ZVHi2JNKe1B0UpJpqhWQAwAnGlGhBoAgJxSOWjNCjfRQK4HHFmDeA+QQkiAGO8OVYtOaX6M4WiFvJbHN QqNoPrKVQtNosxYfL9Yf7gCSOEDx3+OZfkyZNypAiyTXFJRsX2Yjz2ULobLIDULd9D Procedure Social History No Information Vital Signs ID Date Data Source [id number] Name Value Range Interpretation Code Description Data Source(s) Diastolic blood pressure 89 mm[Hg] 89 mm[Hg] [facility] ([facility]) Diastolic blood pressure 89 mm[Hg] 89 mm[Hg] [facility] ([facility]) Body height 65 [in_i] 65 [in_i] [facility] ([facility]) Body mass index (BMI) [Ratio] 29.2 kg/m2 29.2 k g/m2 J[facility] ([facility]) Systolic blood pressure 129 mm[Hg] 129 mm[Hg] A THE[facility] ([facility]) Body weight 2808 [oz_av] 2808 [oz_av] [facility] ([facility]) Body weight 2808 [oz_av] 2808 [oz_av] [facility] ([facility]) Body height 65 [in_i] 65 [in_i] [facility] ([facility]) Body mass index (BMI) [Ratio] 29.2 kg/m2 29.2 k g/m2 [facility] ([facility]) Systolic blood pressure 129 mm[Hg] 129 mm[Hg] A THENA ([facility]) Diastolic blood pressure 89 mm[Hg] 89 mm[Hg] [facility] ([facility]) Body height 65 [in_i] 65 [in_i] [facility] ([facility]) Body mass index (BMI) [Ratio] 29.2 kg/m2 29.2 k g/m2 [facility] ([facility]) Systolic blood pressure 129 mm[Hg] 129 mm[Hg] A THENA ([facility]) Body weight 2808 [oz_av] 2808 [oz_av] [facility] ([facility]) ID Date Data Source [id number] 12/04/2019 03:55:04 AM [facility] Name Value Range Interpretation Code Description Data Source(s) WEIGHT RECORDED 192 lb 192 lb [facility] Body height Measured 70 in 70 in [facility] Patient Treatment Plan of Care Planned Activity Planned Date Details Description Data Source (s) Ibuprofen 400 MG Oral Tablet 11/26/2019 12:00:00 AM [facility] Amoxicillin 875 MG / Clavulanate 125 MG Oral Tablet 11/26/19 12:00:00 AM [facility] Sucralfate 1000 MG Oral Tablet [facility] ([facility]) Ondansetron 4 MG Disintegrating Oral Tablet [facility] ([facility]) Naproxen 500 MG Oral Tablet [facility] ([facility]) Ibuprofen 400 MG Oral Tablet [facility] ([facility]) Acetaminophen 325 MG / Hydrocodone Bitartrate 5 MG Oral Tablet [facility] ([facility]) Amoxicillin 875 MG / Clavulanate 125 MG Oral Tablet [facility] ([facility]) Sucralfate 1000 MG Oral Tablet J[facility] ([facility]) Ondansetron 4 MG Disintegrating Oral Tablet [facility] ([facility]) Naproxen 500 MG Oral Tablet [facility] ([facility]) Ibuprofen 400 MG Oral Tablet J[facility] ([facility]) Acetaminophen 325 MG / Hydrocodone Bitartrate 5 MG Oral Tablet [facility] ([facility]) Amoxicillin 875 MG / Clavulanate 125 MG Oral Tablet [facility] ([facility]) Sucralfate 1000 MG Oral Tablet [facility] ([facility]) Ondansetron 4 MG Disintegrating Oral Tablet [facility] ([facility]) Naproxen 500 MG Oral Tablet [facility] ([facility]) Ibuprofen 400 MG Oral Tablet [facility] ([facility]) Acetaminophen 325 MG / Hydrocodone Bitartrate 5 MG Oral Tablet [facility] ([facility]) Amoxicillin 875 MG / Clavulanate 125 MG Oral Tablet [facility] ([facility])
[2021-01-31] MEDS ORDERED: LAMO25TA4 PO (02:36)
[2021-01-31] MEDS ORDERED: ACET32TAB PO (02:36)
[2021-01-31] MEDS ORDERED: PEPC40TA12 PO (02:36)
[2021-01-31 03:00] LABS: BASO # 0.1 10^3/uL (0.0-0.2); BASO % 0.6 % (0.0-1.0); EOS # 0.2 10^3/uL (0.0-0.5); EOS % 1.8 % (0.0-3.0); HEMOGLOBIN 12.9 g/dl (13.5-17.5); LYMPH # 2.5 10^3/uL (1.5-5.0); LYMPH % 29.6 % (24.0-44.0); MEAN CORPUSCULAR HEMOGLOBIN 29.6 pg (27.0-33.0); MEAN CORPUSCULAR HGB CONC 33.1 g/dl (32.0-36.5); MEAN CORPUSCULAR VOLUME 89.4 fl (80.0-96.0); MONO # 0.7 10^3/uL (0.0-0.8); MONO % 8.3 % (2.0-8.0); NEUTROPHILS # 4.9 10^3/uL (1.5-8.5); NEUTROPHILS % 59.3 % (36.0-66.0); PLATELET COUNT, AUTOMATED 195 10^3/uL (150-450); RED BLOOD COUNT 4.36 10^6/uL (4.30-6.10); WHITE BLOOD COUNT 8.3 10^3/uL (4.0-10.0)
[2021-01-31 03:30] LABS: BLOOD UREA NITROGEN 18 MG/DL (7-18); CALCIUM LEVEL 8.7 MG/DL (8.5-10.1); CARBON DIOXIDE LEVEL 27 MEQ/L (21-32); CHLORIDE LEVEL 107 MEQ/L (98-107); CK-MB VALUE MASS < 1.0 NG/ML (<3.6); CPK CREATINE PHOSPHOKINASE 193 U/L (39-308); GLOMERULAR FILTRATION RATE > 60.0 (>60); GLUCOSE, FASTING 96 MG/DL (70-100); MB/CK RELATIVE INDEX 0.52 (< OR =4); POTASSIUM SERUM 3.6 MEQ/L (3.5-5.1); SODIUM LEVEL 142 MEQ/L (136-145); TROPONIN I < 0.02 NG/ML (< 0.10)
--- OUTSIDE RECORDS SUMMARY | 2021-01-31 03:50 | CCD ---
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 Index [facility] ([facility]) CK-mb value mass < 1.0 <3.6 CK-mb Value Mass AT [facility] ([facility]) ID Date Data Source [id number] 08/05/2020 08:08:00 AM EDT J[facility] ([facility]) Name Value Range Interpretation Code Description Data Aide rce(s) Supporting Document(s) red blood count 4.48 10 4.30-6.10 Red Blood Count ATHE ([facility]) white blood count 8.9 10 4.0-10.0 White Blood Count [facility] ([facility]) hemoglobin 13.0 g/dL 13.5-17.5 Below low normal Hemoglobin [facility] ( [facility]) mean corpuscular volume 88.8 fL 80.0-96.0 Mean Corpusc ular Volume J[facility] ([facility]) hematocrit 39.8 % 42.0-52.0 Below low normal Hematocrit [facility] ( [facility]) red cell distribution width 13.3 % 11.5-14.5 Red Cell Distribution Width J[facility] ([facility]) mean corpuscular HGB conc 32.7 g/dL 32.0-36.5 Mean Corpu scular HGB Conc J[facility] ([facility]) mean corpuscular hemoglobin 29.0 pg 27.0-33.0 Mean Cor puscular Hemoglobin [facility] ([facility]) neutrophils % 58.7 % 36.0-66.0 Neutrophils % J[facility] ( [facility]) platelet count, automated 230 10 150-450 Platelet C ount, Automated J[facility] ([facility]) mono % 7.2 % 2.0-8.0 [place] % [place] ([facility]) lymph % 31.7 % 24.0-44.0 Lymph % [facility] ([facility]) eos % 1.5 % 0.0-3.0 Eos % [facility] ([facility]) immature granulocyte % 0.2 % 0-3.0 Immature Gran ulocyte % [place] ([facility]) baso % 0.7 % 0.0-1.0 Baso % [place] ([facility]) neutrophils # 5.3 10 1.5-8.5 Neutrophils # [place] ( [facility]) nucleated red blood cell % 0.0 % 0-0 Nucleated Red Blood Cell % [place] ([facility]) lymph # 2.8 10 1.5-5.0 Lymph # [place] ([facility]) eos # 0.1 10 0.0-0.5 Eos # [place] ([facility]) mono # 0.6 10 0.0-0.8 [place] # [place] ([facility]) baso # 0.1 10 0.0-0.2 Baso # [place] ([facility]) ID Date Data Source [id number] 01/10/2020 09:27:00 AM EDT [facility] Name Value Range Interpretation Code Description Data Aide rce(s) Supporting Document(s) SARS coronavirus 2 RNA [facility] This lab was ordered by [facility] and reported by [facility]. ID Date Data Source [id number] 12/04/2019 03:55:04 AM EDT [facility] Name Value Range Interpretation Code Description Data Aide rce(s) Supporting Document(s) ED Provider Note [facility] [id number]/VNHdzAKWhp3DlQVosIVh5HTjeELVcT2MbSNY7gG4uULG7HOiDLnIqRvDyZSS7 lbm [file] r1R11ooNAyIKtwPA4WUDK+Ilan+Qr4DYJYfJYOiCALtPgUdSROVAyYbO9OwW2FYq6ZwB9SpBI33qXscff VgMXywLS6DAT9nHISxPDUKXB5FkCCqiL9lkhK7YAWfKQHNNiWzU30rnIZcESNoGJYuKGToMe7IOVEcZ5 KontApiCdpbeXsBVUdNAIVXY1CSJlzxpHyyCBpnMpg UF73jXmiYG3NGu1YBxKeKA7jww1RzIBcKc8VVBI2Mk4INARiVQUfYFEhJVI4GFWfNoTyMBppHOYuIPRg KGH6NGNaQGMyKV5TPmVjOHDpOQRcCECgMSKmDKJrsw5UMVZxZHM7ZCw1QSIfTLWkHKRuVLfyOAXyWZBd ZME7VFYrBRWtJE0CUeNeGTYfRQIdMeulQHKlJEDsbo 3ATJBiBTZdYaXjBuTxVAScKTJtQQaoVDSsGFR0LMR4ANIwNCMvYZ4ZIcZaOPZiVPEsToXrDKLrZIMxpl 7GYDTxVVNtECgqFtYoSPUhADExTMgtUYDkCTRzYNHjSTArUBEuDH6KPnMmXLDbETToOTKfKQIrCDBfyo 8IOGUrFZJeSdOtFYZaSDDqKRHwLDxeYJOaQTJ8TYZ8 NTMmRUJzVX8LChTeMJUsYPQsWZTqBAFqHJRaxo5RREPgNNKhCOH0RIJySZFuVHInKDvaUFEqRIG2UrM2 NADeUCDgKR7RHwAiRFEaGtV2HVXcJHTsFVRyux2ZNOTxMWLkDbQ1JtFsGJQnNWVmMSnnUNMtCGF2DwTl JKMxRTRvPJ9UCvUzPCOaZaB9HNZfMGPhXLTirq0NAV PiWILzBCA3MVLdJGGvLIDdFBdaRCZuCZB3YYJ1RTGaQVXyXP9QAqDtOJXnIoA0QvJoIZXoAQPwgx5CAI TnKDAjVIa7QmGzDDWfTPNhKDwnYSSeUCO1MpvjUWDxDHUfGB6FZrHwWLNyYdY4PMMqKRBwTLHbas6XIS DwZREbYvJ5DWDmPDRrYWVcVPcgJAUvWKZ3Tpu0JIVc HKKjRI6XAiDgJRVwYqs2ZTGgNULePJUzxp7JRKZeCCKfEYo6IcIcFQMdOBGnXIhrAWZrIHJ9PFH3DKTx DAMwPP2UKqMxLVIlHtv3FQUpYKNrFDUbpn7EUAZpEOV9OYS1TpVjVVAzOSIvMWquMNTyOVWmWgo8TKYa XOTaNE6ZOxKnJDEiNRFzFRQfUHRzGATxyi8ACDGwST C6JUB4KSHcTVDnZPXbLOmmCGXuBIGyIaG6ZONjGJMhMG8DXbBkXNLdEVOxEEzbLPNoFRAocv3UMCFhSJ G7DgCcMiJzZQVnYNYwRVdrPUKcVMBcVoY9BEFdRXJnID6FYcUoGJTbUMK2ZzIsOOKuPVIhzh5QWOVdYB N0ROQrWUZkSFNqXSPwSVvpIUTxSGH7QVA9DMRyRCVv NN1SAiLkGJHaIEF0VAPkYSUrGZHgtk8TQWXjZQT0GvVaFmGnJSGwVVNzLMqqFHRmINI4QjW4QWOnIMZd ZO7JTlQqXLOxEZBzRoNpSFLuVKQclw0OHLOiPQJ2NqEsZrOmRRFjDLUbWFfsIMDiBLG8Grc4NCRoILWw CE6VBsSoNZGsYDA5TgcnNXNiZAPmpq8PXYRaJGV5Qu D1RVYnCMMfAQUwZJu0mnVxmSOxTXw0VR7XU6ApfnUqHFVMJf7Gk079KSJlGRLnAv6ZK4rwBm9nJAGjSC VDJf5OMLs6F9GsFbfcSWTeLvHvDdExEyZiGIZtNNqrMTZ1MCRoKtH+XWopLNA1TWZpMyF7W9TvGpMgSU AlQkOdYJFuEsglXqR6Ll7kGOVYNk6+SQlqoTHkuVxfBNGSOwA4Szh2VYwdBZTIEl0F Procedure Social History No Information Vital Signs ID Date Data Source UNK Name Value Range Interpretation Code Description Data Source(s) Diastolic blood pressure 89 mm[Hg] 89 mm[Hg] [facility] ([facility]) Body height 65 [in_i] 65 [in_i] [facility] ([facility]) Body mass index (BMI) [Ratio] 29.2 kg/m2 29.2 k g/m2 J[facility] ([facility]) Systolic blood pressure 129 mm[Hg] 129 mm[Hg] A THENA ([facility]) Diastolic blood pressure 89 mm[Hg] 89 mm[Hg] [facility] ([facility]) Body height 65 [in_i] 65 [in_i] [facility] ([facility]) Body mass index (BMI) [Ratio] 29.2 kg/m2 29.2 k g/m2 [facility] ([facility]) Systolic blood pressure 129 mm[Hg] 129 mm[Hg] A THENA ([facility]) Body weight 2808 [oz_av] 2808 [oz_av] [facility] ([facility]) Body weight 2808 [oz_av] 2808 [oz_av] [facility] ([facility]) Diastolic blood pressure 89 mm[Hg] 89 mm[Hg] J[facility] ([facility]) Body height 65 [in_i] 65 [in_i] [facility] ([facility]) Body mass index (BMI) [Ratio] 29.2 kg/m2 29.2 k g/m2 J[facility] ([facility]) Systolic blood pressure 129 mm[Hg] 129 mm[Hg] A THENA ([facility]) Body weight 2808 [oz_av] 2808 [oz_av] [facility] ([facility]) ID Date Data Source [id number] 12/04/2019 03:55:[address] [facility] Name Value Range Interpretation Code Description Data Source(s) WEIGHT RECORDED 192 lb 192 lb [facility] Body height Measured 70 in 70 in [facility] Patient Treatment Plan of Care Planned Activity Planned Date Details Description Data Source (s) Ibuprofen 400 MG Oral Tablet 11/26/2019 12:00:00 AM [facility] Amoxicillin 875 MG / Clavulanate 125 MG Oral Tablet 11/26/19 12:00:00 AM [facility] Sucralfate 1000 MG Oral Tablet JH ([facility]) Ondansetron 4 MG Disintegrating Oral Tablet J[facility] ([facility]) Naproxen 500 MG Oral Tablet J[facility] ([facility]) Ibuprofen 400 MG Oral Tablet JH ([facility]) Acetaminophen 325 MG / Hydrocodone Bitartrate 5 MG Oral Tablet J[facility] ([facility]) Amoxicillin 875 MG / Clavulanate 125 MG Oral Tablet JH ([facility]) Sucralfate 1000 MG Oral Tablet J[facility] ([facility]) Ondansetron 4 MG Disintegrating Oral Tablet J[facility] ([facility]) Naproxen 500 MG Oral Tablet J[facility] ([facility]) Ibuprofen 400 MG Oral Tablet J[facility] ([facility]) Acetaminophen 325 MG / Hydrocodone Bitartrate 5 MG Oral Tablet J[facility] ([facility]) Amoxicillin 875 MG / Clavulanate 125 MG Oral Tablet J[facility] ([facility]) Sucralfate 1000 MG Oral Tablet J[facility] ([facility]) Ondansetron 4 MG Disintegrating Oral Tablet J[facility] ([facility]) Naproxen 500 MG Oral Tablet J[facility] ([facility]) Ibuprofen 400 MG Oral Tablet J[facility] ([facility]) Acetaminophen 325 MG / Hydrocodone Bitartrate 5 MG Oral Tablet J[facility] ([facility]) Amoxicillin 875 MG / Clavulanate 125 MG Oral Tablet J[facility] ([facility])
--- NOTE | 2021-01-31 04:01 | REPVR ---
PROCEDURE INFORMATION: Exam: XR Chest Exam date and time: 01/31/2021 3:22 AM Age: 45 years old Clinical indication: Other: Chest pain TECHNIQUE: Imaging protocol: XR of the chest. Views: 1 view. COMPARISON: CR Chest, 2 view PA, Lat 03/07/2015 5:50 AM FINDINGS: Lungs: Unremarkable. No consolidation. Pleural spaces: Unremarkable. No pleural effusion. No pneumothorax. Heart/Mediastinum: Unremarkable. No cardiomegaly. Bones/joints: Unremarkable. IMPRESSION: No acute findings. Electronically signed by: Kiera Nielsen On 01/31/2021 04:00:22 AM
[2021-01-31 06:17] LABS: CK-MB VALUE MASS 1.1 NG/ML (<3.6); CPK CREATINE PHOSPHOKINASE 166 U/L (39-308); MB/CK RELATIVE INDEX 0.66 (< OR =4); TROPONIN I < 0.02 NG/ML (< 0.10)
[2021-01-31 06:45] VITALS: BP 100/64
--- NOTE | 2021-01-31 07:54 | ECGEPIP ---
[facility] - ED Test Date: 2021-01-31 Pat Name: LIZ GARCIA Department: Room: - Gender: Male [facility] Director: GINA : 1975 Requested By: DERRICK Pham Order Number: [id number] Reading MD: Pamela Cross Measurements Intervals [place] Rate: 68 P: 28 ME: 112 QRS: 54 QRSD: 92 T: 44 QT: 408 QTc: 433 Interpretive Statements Normal sinus rhythm similar 01/31/21 Electronically Signed on 01-31-2021 7:54:44 EDT by Pamela Cross
--- NOTE | 2021-01-31 07:54 | ECGEPIP ---
[facility] - ED Test Date: 2021-01-31 Pat Name: LIZ GARCIA Department: Room: - Gender: Male [place]: : 1975 Requested By: DERRICK Pham Order Number: [id number] Reading MD: Pamela Cross Measurements Intervals [place] Rate: 75 P: 36 [place]: 120 QRS: 55 QRSD: 86 T: 50 QT: 380 QTc: 424 Interpretive Statements Normal sinus rhythm decreased rate 08/05/20 Electronically Signed on 01-31-2021 7:54:09 EDT by Pamela Cross
== END 2021-01-31 07:29 | disposition home or self-care (01) ==
LOC: M ED 02:17
DX: R07.89 Other chest pain (principal); Z90.49 Acquired absence of other specified parts of digestive tract; F17.200 Nicotine dependence, unspecified, uncomplicated; J30.2 Other seasonal allergic rhinitis; Z79.899 Other long term (current) drug therapy

== ENCOUNTER 2023-09-26 10:33 | Emergency (ER) | payer OTHER ==
[~2023-09-26] VITALS: Ht 165.1 cm; Wt 68.0 kg
[~2023-09-26 10:33] MED LIST changes: +ACET32TAB PO; +LAMO25TA4 PO; +ONDA-282 PO; -ONDA4TAB6 PO; +PEPC40TA12 PO
[2023-09-26] MEDS ORDERED: ACET1TAB55 PO (11:45)
[2023-09-26] MEDS ORDERED: HOME MED LIST COMPLETE! XX SCH (11:45)
[2023-09-26] MEDS: LIDOCAINE 5% (LIDODERM) PATCH TD ONE (11:47)
[2023-09-26] MEDS: CYCLOBENZAPRINE 5MG TABLET PO ONE (11:48)
[2023-09-26] MEDS: ACETAMINOPHEN 500 MG TAB PO ONE (11:48)
[2023-09-26] MEDS ORDERED: IBUP80TA PO (12:33)
[2023-09-26 12:38] VITALS: BP 128/84; TEMP 97.6; O2SAT 100
== END 2023-09-26 12:42 | disposition home or self-care (01) ==
LOC: M ED 10:33
DX: M54.50 Low back pain, unspecified (principal); E03.9 Hypothyroidism, unspecified; F17.210 Nicotine dependence, cigarettes, uncomplicated; Z91.09 Other allergy status, other than to drugs and biological substances; Z79.1 Long term (current) use of non-steroidal anti-inflammatories (NSAID)

== ENCOUNTER 2024-04-16 10:58 | Emergency (ER) | payer OTHER ==
[~2024-04-16] VITALS: Ht 165.1 cm; Wt 65.8 kg
[~2024-04-16 10:58] MED LIST changes: +ACET1TAB55 PO; +IBUP80TA PO
[2024-04-16] MEDS: ONDANSETRON 4MG ORAL DISINTEGRATING TAB PO ONE (13:34)
[2024-04-16] MEDS: KETOROLAC 60MG 2ML VIAL IM ONE (13:35)
[2024-04-16 13:43] LABS: BASO # 0.1 10^3/uL (0.0-0.2); BASO % 0.7 % (0.0-1.0); EOS # 0.1 10^3/uL (0.0-0.5); EOS % 1.7 % (0.0-3.0); HEMATOCRIT 45.4 % (42.0-52.0); HEMOGLOBIN 15.5 g/dl (13.5-17.5); LYMPH # 1.9 10^3/uL (1.5-5.0); LYMPH % 23.3 % (24.0-44.0); MEAN CORPUSCULAR HEMOGLOBIN 30.4 pg (27.0-33.0); MEAN CORPUSCULAR HGB CONC 34.1 g/dl (32.0-36.5); MONO # 0.6 10^3/uL (0.0-0.8); NEUTROPHILS # 5.5 10^3/uL (1.5-8.5); NEUTROPHILS % 67.1 % (36.0-66.0); PLATELET COUNT, AUTOMATED 208 10^3/uL (150-450); WHITE BLOOD COUNT 8.2 10^3/uL (4.0-10.0)
[2024-04-16 14:13] LABS: ALBUMIN 4.4 G/DL (3.2-5.2); ALKALINE PHOSPHATASE 98 U/L (40-129); ALT/SGPT 27 U/L (7.0-40); AST/SGOT 21 U/L (<34); BILIRUBIN,TOTAL 0.7 MG/DL (0.3-1.2); BLOOD UREA NITROGEN 12 MG/DL (9-23); CALCIUM LEVEL 10.2 MG/DL (8.5-10.1); CARBON DIOXIDE LEVEL 26 MMOL/L (20-31); CHLORIDE LEVEL 105 MMOL/L (98-107); CREATININE FOR GFR 1.08 MG/DL (0.70-1.30); GLOMERULAR FILTRATION RATE > 60.0 (>60); GLUCOSE, FASTING 88 MG/DL (60-100); POTASSIUM SERUM 4.2 MMOL/L (3.5-5.1); SODIUM LEVEL 141 MMOL/L (136-145); TOTAL PROTEIN 8.4 G/DL (5.7-8.2)
[2024-04-16] MEDS ORDERED: BENZ200C70 PO (14:58)
[2024-04-16] MEDS ORDERED: VENTAER INH (14:58)
[2024-04-16 15:05] VITALS: BP 122/77; TEMP 97.8; O2SAT 98
== END 2024-04-16 15:16 | disposition home or self-care (01) ==
LOC: M ED 10:58
DX: J20.9 Acute bronchitis, unspecified (principal); F17.210 Nicotine dependence, cigarettes, uncomplicated; Z91.09 Other allergy status, other than to drugs and biological substances; Z79.51 Long term (current) use of inhaled steroids; Z79.899 Other long term (current) drug therapy
CPT/HCPCS: 36415; 71046; 80053; 85025; 85379; 87400; 87486; 87581; 87633; 87798; 96372; 99284; J1885

== ENCOUNTER 2024-05-27 19:30 | Emergency (ER) | payer OTHER ==
[~2024-05-27] VITALS: Ht 165.1 cm; Wt 65.9 kg
[~2024-05-27 19:30] MED LIST changes: +BENZ200C70 PO; +VENTAER INH
[2024-05-27 19:34] VITALS: BP 121/75; TEMP 98.1; O2SAT 98
== END 2024-05-27 21:00 | disposition left against medical advice (07) ==
LOC: M ED 19:30
DX: Z53.21 Procedure and treatment not carried out due to patient leaving prior to being seen by health care provider (principal)